=== PATIENT | female | born 1950 | race Two or more races ===

== ENCOUNTER → 2019-08-06 | Emergency (ER) | payer OTHER ==
[~2019-08-06] VITALS: Ht 157.5 cm; Wt 66.2 kg
[~2019-08-06] MED LIST: AMLO10TA13 PO; MORPHINE SULFATE 4 MG/ML SYR/VIAL IV ONE; ONDANSETRON HCL 4 MG/2 ML VIAL IV ONE; PAR20T PO; Pantoprazole Sodium Sesquihydr PO; fentaNYL CITRATE 100 MCG/2 ML VL IV ONE
[2019-08-06 19:03] LABS: Basophils # (auto) 0 10 ^3/uL (0-0.2); Basophils % (auto) 0.5 % (0.0-2.0); Eosinophils # (auto) 0 10 ^3/uL (0-0.8); Eosinophils % (auto) 0.5 % (0.0-7.0); Hematocrit 41.6 % (36.0-46.0); Hemoglobin 13.8 g/dL (12.2-16.2); Lymphocytes # (auto) 1.2 10 ^3/uL (0.4-5.4); Lymphocytes % (auto) 18.6 % (10.0-50.0); Mean Corpuscular Hemoglobin 30.1 pg (28.0-32.0); Mean Corpuscular Hgb Conc. 33.3 g/dL (32.0-36.0); Mean Corpuscular Volume 90.7 fL (80.0-100.0); Monocytes # (auto) 0.7 10 ^3/uL (0-1.3); Monocytes % (auto) 10.8 % (0.0-12.0); Neutrophils # (auto) 4.7 10 ^3/uL (1.6-8.6); Neutrophils % (auto) 69.6 % (37.0-80.0); Nucleated Red Blood Cells % 0.1 %; Platelet Count (auto) 398 10^3/uL (140-450); Red Blood Cells 4.59 10^6/uL (4.0-5.20); Red Cell Distribution Width 13.3 % (11.8-14.3); White Blood Cell 6.7 10^3/uL (4.4-10.8)
[2019-08-06 19:10] LABS: Alanine Aminotransferase 7 U/L (13-56); Albumin 3.4 g/dL (3.4-5.0); Anion Gap 6 (5-15); Aspartate Aminotransferase 15 U/L (15-37); BUN/Creatinine Ratio 12.2; Blood Urea Nitrogen 11 mg/dL (7-18); Calcium 9.1 mg/dL (8.5-10.1); Carbon Dioxide 28 mmol/L (21-32); Chloride 105 mmol/L (98-107); GFR African American 80 mL/min; GFR Non-African American 66 mL/min; Glucose 119 mg/dL (74-106); Magnesium 2.4 mg/dL (1.6-2.6); Potassium 3.7 mmol/L (3.5-5.1); Sodium 139 mmol/L (136-145)
[2019-08-06 19:15] LABS: Alkaline Phosphatase 112 U/L (45-117)
[2019-08-06 21:10] VITALS: BP 129/63
[2019-08-06 22:49] LABS: Urine Bacteria FEW /hpf (None Seen); Urine Blood TRACE /uL (Negative); Urine Mucus FEW (None Seen); Urine Specific Gravity 1.019 (1.001-1.035); Urine WBC 23 /hpf (0 - 5)
== END | disposition home or self-care (01) ==
LOC: EDUNIT# 18:30 → ER 18:30 → EDBD 18:30
DX: R07.89 Other chest pain (principal); E78.5 Hyperlipidemia, unspecified; K21.9 Gastro-esophageal reflux disease without esophagitis; I10 Essential (primary) hypertension; R11.2 Nausea with vomiting, unspecified
CPT/HCPCS: 36415; 71045; 80053; 81001; 83735; 84443; 84484; 85025; 93005; 96374; 96375; 96376; 99285; J2270; J2405; J3010

== ENCOUNTER → 2022-10-08 | Outpatient (CLI) | payer OTHER ==
[~2022-10-08] MED LIST changes: -AMLO10TA13 PO; +AMLO1TAB23 PO; -MORPHINE SULFATE 4 MG/ML SYR/VIAL IV ONE; -ONDANSETRON HCL 4 MG/2 ML VIAL IV ONE; -fentaNYL CITRATE 100 MCG/2 ML VL IV ONE
[2022-10-08 11:29] LABS: Basophils # (auto) 0 10 ^3/uL (0-0.2); Eosinophils # (auto) 0 10 ^3/uL (0-0.8); Lymphocytes # (auto) 1.1 10 ^3/uL (0.4-5.4); Monocytes # (auto) 0.7 10 ^3/uL (0-1.3)
[2022-10-08 11:31] LABS: Basophils % (auto) 0.5 % (0.0-2.0); Eosinophils % (auto) 0.1 % (0.0-7.0); Lymphocytes % (auto) 11.2 % (10.0-50.0); Mean Corpuscular Hemoglobin 30.2 pg (28.0-32.0); Mean Corpuscular Hgb Conc. 33.4 g/dL (32.0-36.0); Mean Corpuscular Volume 90.6 fL (80.0-100.0); Monocytes % (auto) 7.5 % (0.0-12.0); Neutrophils # (auto) 7.8 10 ^3/uL (1.6-8.6); Neutrophils % (auto) 80.7 % (37.0-80.0); Red Blood Cells 4.64 10^6/uL (4.0-5.20); Red Cell Distribution Width 13.5 % (11.8-14.3); White Blood Cell 9.7 10^3/uL (4.4-10.8)
[2022-10-08 11:47] LABS: Urine Blood 2+ /uL (Negative); Urine Specific Gravity 1.022 (1.001-1.035)
[2022-10-08 12:09] LABS: Albumin 3.8 g/dL (3.4-5.0); Calcium 9.3 mg/dL (8.5-10.1)
[2022-10-08 12:13] LABS: Bilirubin, Total 1.2 mg/dL (0.2-1.0); Total Protein 8.2 g/dL (6.4-8.2); Uric Acid 5.1 mg/dL (2.6-6.0)
== END | disposition home or self-care (01) ==
LOC: LAB 11:14
PROVIDERS: ATTEND Family Medicine
DX: Z12.11 Encounter for screening for malignant neoplasm of colon (principal); Z00.01 Encounter for general adult medical examination with abnormal findings; E55.9 Vitamin D deficiency, unspecified; G20 Parkinson's disease; F33.9 Major depressive disorder, recurrent, unspecified; I67.9 Cerebrovascular disease, unspecified; E78.2 Mixed hyperlipidemia; R73.09 Other abnormal glucose; R73.03 Prediabetes; E66.3 Overweight
CPT/HCPCS: 36415; 80053; 80061; 81003; 82270; 83036; 84443; 84550; 85025

== ENCOUNTER → 2023-08-21 | Outpatient (CLI) | payer OTHER | END | disposition home or self-care (01) | LOC: LAB 10:23 | PROVIDERS: ATTEND Family Medicine | DX: Z00.01 Encounter for general adult medical examination with abnormal findings (principal) | CPT/HCPCS: 82270 ==

== ENCOUNTER → 2023-09-08 | Outpatient (CLI) | payer OTHER ==
[2023-09-08 10:20] LABS: Basophils # (auto) 0 10 ^3/uL (0-0.2); Basophils % (auto) 0.5 % (0.0-2.0); Eosinophils # (auto) 0 10 ^3/uL (0-0.8); Eosinophils % (auto) 0.4 % (0.0-7.0); Hematocrit 39.5 % (36.0-46.0); Hemoglobin 13.4 g/dL (12.2-16.2); Lymphocytes # (auto) 1.5 10 ^3/uL (0.4-5.4); Lymphocytes % (auto) 19.3 % (10.0-50.0); Monocytes # (auto) 0.7 10 ^3/uL (0-1.3); Monocytes % (auto) 8.9 % (0.0-12.0); Neutrophils # (auto) 5.7 10 ^3/uL (1.6-8.6); Neutrophils % (auto) 70.9 % (37.0-80.0); Nucleated Red Blood Cells % 0.1 %; Red Blood Cells 4.34 10^6/uL (4.0-5.20); Red Cell Distribution Width 13.5 % (11.8-14.3)
[2023-09-08 11:02] LABS: Alanine Aminotransferase 14 U/L (7-40); Alkaline Phosphatase 81 U/L (46-116); Anion Gap 6 (5-15); BUN/Creatinine Ratio 11.2 (10.0-20.0); Blood Urea Nitrogen 10 mg/dL (9-23); Carbon Dioxide 29 mmol/L (20-30); Chloride 107 mmol/L (98-107); Glucose 105 mg/dL (74-106); LDL Cholesterol 112 mg/dL (< 100); Potassium 3.9 mmol/L (3.5-5.1); Sodium 142 mmol/L (136-145); Triglycerides 131 mg/dL (< 150)
[2023-09-08 11:03] LABS: Albumin 4.6 g/dL (3.2-4.8); Aspartate Aminotransferase 15 U/L (13-40); Cholesterol 202 mg/dL (< 200)
[2023-09-08 11:04] LABS: Bilirubin, Total 1.3 mg/dL (0.2-1.0); HDL Cholesterol 67 mg/dL (40-59)
[2023-09-08 11:31] LABS: Uric Acid 4.9 mg/dL (3.1-7.8)
[2023-09-08 11:56] LABS: Urine Blood 1+ /uL (Negative); Urine Clarity Turbid (Clear); Urine Color Light-Yellow (Yellow); Urine Protein, UAD Negative (Negative); Urine Specific Gravity 1.015 (1.001-1.035); Urine Urobilinogen Normal (Negative); Urine pH 5.5 (5.0-9.0)
== END | disposition home or self-care (01) ==
LOC: LAB 09:40
PROVIDERS: ATTEND Family Medicine
DX: Z11.8 Encounter for screening for other infectious and parasitic diseases (principal); I73.9 Peripheral vascular disease, unspecified; E55.9 Vitamin D deficiency, unspecified; E66.3 Overweight; I67.9 Cerebrovascular disease, unspecified; E78.5 Hyperlipidemia, unspecified; R73.09 Other abnormal glucose
CPT/HCPCS: 36415; 80053; 80061; 81003; 82306; 83036; 84443; 84550; 85025

== ENCOUNTER → 2024-06-30 | Outpatient (CLI) | payer OTHER | END | disposition home or self-care (01) | LOC: LAB 15:46 | PROVIDERS: ATTEND Family Medicine | DX: Z12.11 Encounter for screening for malignant neoplasm of colon (principal) | CPT/HCPCS: 82270 ==

== ENCOUNTER → 2024-09-02 | Outpatient (CLI) | payer OTHER ==
[2024-09-02 08:25] LABS: Urine Bacteria None Seen /hpf (None Seen)
[2024-09-02 08:44] LABS: Basophils # (auto) 0.1 10 ^3/uL (0-0.2); Basophils % (auto) 0.9 % (0.0-2.0); Eosinophils # (auto) 0 10 ^3/uL (0-0.8); Eosinophils % (auto) 0.6 % (0.0-7.0); Hematocrit 41.8 % (36.0-46.0); Lymphocytes # (auto) 1.7 10 ^3/uL (0.4-5.4); Lymphocytes % (auto) 25.5 % (10.0-50.0); Mean Corpuscular Hemoglobin 29.8 pg (28.0-32.0); Mean Corpuscular Hgb Conc. 33.6 g/dL (32.0-36.0); Mean Corpuscular Volume 88.6 fL (80.0-100.0); Monocytes # (auto) 0.6 10 ^3/uL (0-1.3); Monocytes % (auto) 8.5 % (0.0-12.0); Neutrophils # (auto) 4.4 10 ^3/uL (1.6-8.6); Neutrophils % (auto) 64.5 % (37.0-80.0); Nucleated Red Blood Cells % 0.1 %; Platelet Count (auto) 410 10^3/uL (140-450); Red Blood Cells 4.72 10^6/uL (4.0-5.20); Red Cell Distribution Width 13.8 % (11.8-14.3); White Blood Cell 6.8 10^3/uL (4.4-10.8)
[2024-09-02 08:55] LABS: Urine Blood 1+ /uL (Negative); Urine Clarity Clear (Clear); Urine Color Light-Yellow (Yellow); Urine Mucus FEW (None Seen); Urine Protein, UAD Negative (Negative); Urine Specific Gravity 1.016 (1.001-1.035); Urine Squamous Epithelial Cell FEW /hpf (<5); Urine Urobilinogen Normal (Negative); Urine WBC 22 /HPF (0-5)
[2024-09-02 09:32] LABS: Alanine Aminotransferase 10 U/L (7-40); Albumin 4.7 g/dL (3.2-4.8); Alkaline Phosphatase 78 U/L (46-116); Anion Gap 12 (5-15); Aspartate Aminotransferase 17 U/L (13-40); BUN/Creatinine Ratio 15.8 (10.0-20.0); Blood Urea Nitrogen 16 mg/dL (9-23); Calcium 10.4 mg/dL (8.7-10.4); Carbon Dioxide 25 mmol/L (20-31); Chloride 104 mmol/L (98-107); Potassium 3.7 mmol/L (3.5-5.1); Sodium 141 mmol/L (136-145); Total Protein 8.1 g/dL (5.7-8.2); Triglycerides 99 mg/dL (< 150)
[2024-09-02 09:38] LABS: Bilirubin, Total 1.3 mg/dL (0.2-1.0); Cholesterol 270 mg/dL (< 200); Glucose 114 mg/dL (74-106)
[2024-09-02 09:39] LABS: HDL Cholesterol 73 mg/dL (40-59); LDL Cholesterol 199 mg/dL (< 100)
[2024-09-02 10:29] LABS: Uric Acid 5.7 mg/dL (3.1-7.8)
== END | disposition home or self-care (01) ==
LOC: LAB 08:10
PROVIDERS: ATTEND Family Medicine
DX: E78.2 Mixed hyperlipidemia (principal); M19.031 Primary osteoarthritis, right wrist; E55.9 Vitamin D deficiency, unspecified; N18.2 Chronic kidney disease, stage 2 (mild); G20.C Parkinsonism, unspecified; F33.9 Major depressive disorder, recurrent, unspecified; R73.03 Prediabetes; R73.09 Other abnormal glucose; Z87.81 Personal history of (healed) traumatic fracture
CPT/HCPCS: 36415; 80053; 80061; 81001; 82043; 82306; 83036; 84443; 84550; 85025

== ENCOUNTER 2025-02-14 04:25 | Inpatient (IN) | payer MEDICARE, OTHER ==
[~2025-02-14] VITALS: Ht 152.4 cm; Wt 70.5 kg
--- NOTE | 2025-02-14 07:13 | ED.PDOC ---
GI ASSESSMENT HPI Comments 74 year old female with PMHx HTN, HLD, Parkinson's disease, arthritis, GERD presents to the ED with a chief complaint of abdominal pain onset 1 day. Patient states she has been experiencing abdominal pain as well as nausea/vomiting for the past day, noticed symptoms worsened around midnight. Since ED arrival, she experienced 3 episodes of emesis. Denies fever, chills, headache, dizziness, hematemesis, dysuria, hematuria. No other symptoms or modifying factors present at this time. Chief Complaint: Abdominal Pain Time Seen by MD: 07:00 Primary Care Provider: DAVID Goncalves Notes: Medications, Allergies Allergies: Coded Allergies: NO KNOWN ALLERGIES (Unverified , 11/01/14) Home Meds Active Scripts [Pantoprazole Sodium Sesquihydr] 40 MG TB No Conflict Check, 40 MG PO BID, #60 TAB Prov:CHARLIE PUGH MD 11/03/14 Reported Medications Amlodipine Besylate (Amlodipine Besylate) 10 Mg Tab, PO DAILY 11/01/14 Paroxetine (PAXIL TABLET) 20 Mg Tb, PO HS 11/01/14 Information Source: Patient, Relative Mode of Arrival: Ambulatory Timing: Days Duration: Since onset Prehospital treatment: None Quality: Sharp Vomitus: None Severity: Moderate Recent: None Recent Hx of: None Pain Location: Diffuse Modifying Factors: Nothing Associated sign and symptoms: Nausea, Vomiting, Abdominal Pain Past Medical History PAST MEDICAL HISTORY: Arthritis, Depression, GERD, High Lipids, HTN Surgical History: Denies all surgeries CRNA History: Denies all CRNA Hx Family History Family History: Reviewed,noncontributory to illness Social History Smoker: Non-Smoker Alcohol: Rarely Drugs: Denies Drug Use Lives In: Home Constitutional: denies: chills, diaphoresis, fatigue, fever, malaise, sweats, weakness, others EENTM: denies: blurred vision, double vision, ear bleeding, ear discharge, ear drainage, ear pain, ear ringing, eye pain, eye redness, hearing loss, mouth pain, mouth swelling, nasal discharge, nose bleeding, nose congestion, nose pain, photophobia, tearing, throat pain, throat swelling, voice changes, others Respiratory: denies: cough, hemoptysis, orthopnea, SOB at rest, shortness of breath, SOB with excertion, stridor, wheezing, others Cardiovascular: denies: chest pain, dizzy spells, diaphoresis, Dyspnea on exertion, edema, irregular heart beat, left arm pain, lightheadedness, palpitations, PND, syncope, others Gastrointestinal: reports: abdominal pain, nausea, vomiting; denies: abdomen distended, blood streaked bowels, constipated, diarrhea, dysphagia, difficulty swallowing, hematemesis, melena, poor appetite, poor fluid intake, rectal bleeding, rectal pain, others Genitourinary: denies: abnormal vagina bleeding, burning, dyspareunia, dysuria, flank pain, frequency, hematuria, incontinence, pain, , vagina discharge, urgency, others Neurological: denies: dizziness, fainting, headache, left sided numbness, left sided weakness, numbness, paresthesia, pre-existing deficit, right sided numbness, right sided weakness, seizure, speech problems, tingling, tremors, weakness, others Musculoskeletal: denies: back pain, gout, joint pain, joint swelling, muscle pain, muscle stiffness, neck pain, others Integumetry: denies: bruises, change in color, change in hair/nails, dryness, laceration, lesions, lumps, rash, wounds, others Allergic/Immunocompromised: denies: Difficulty Healing, Frequent Infections, Hives, Itching, others Hematologic/Lymphatic: denies: anemia, blood clots, easy bleeding, easy bruising, swollen glands, others Endocrine: denies: excessive hunger, excessive sweating, excessive thirst, excessive urination, flushing, intolerance to cold, intolerance to heat, unexplained weight gain, unexplained weight loss, others Psychiatric: denies: anxiety, bipolar disorder, depression, hopeless, panic disorder, schizophrenia, sleepless, suicidal, others All Other Systems: Reviewed and Negative Physical Exam General Appearance: Normal HEENT: Normal ENT Inspection, Pharynx Normal, TMs Normal Neck: Full Range of Motion, Non-Tender, Normal, Normal Inspection Respiratory: Chest Non-Tender, Lungs Clear, No Accessory Muscle Use, No Respiratory Distress, Normal Breath Sounds Cardiovascular: No Edema, No JVD, No Murmur, No Gallop, Normal Peripheral Pulses, Regular Rate/Rhythm Breast Exam: Deferred Gastrointestinal: No Organomegaly, Non Tender, No Pulsatile Mass, Normal Bowel Sounds, Soft Genitalia: Deferred Pelvic: Deferred Rectal: Deferred Extremities: No calf tenderness, Normal capillary refill, Normal inspection, Normal range of motion, Non-tender, No pedal edema Musculoskeletal : Apperance: Normal Neurologic: Alert, physical therapist clinic director II-XII nml as Tested, No Motor Deficits, Normal Affect, Normal Mood, No Sensory Deficits Cerebellar Function: Normal Reflexes: Normal Skin: Dry, Normal Color, Warm Lymphatic: No Adenopathy Was a procedure done? Was a procedure done?: No GI differential Dx Differential Diagnosis: Gastritis/PUD, Gastroenteritis, Electrolyte Imbalance, Food Poisoning, Bacterial, Viral X-Ray, Labs, Meds, VS Vital Signs Date Time Temp Pulse Resp B/P (MAP) Pulse Ox O2 Delivery O2 Flow Rate FiO2 02/14/25 09:15 105 18 130/71 (90) 96 02/14/25 07:47 103 18 98 Room Air* 0 21 02/14/25 07:23 97.5 103 18 133/80 (97) 96 97.5 02/14/25 06:22 97.3 96 18 123/66 96 97.3 02/14/25 06:07 98.2 99 18 121/80 (94) 97 98.2 Lab Test 02/14/25 10:04 02/14/25 08:08 02/14/25 07:35 02/14/25 07:08 Range/Units Troponin I High Sensitivity 6 6 5 </=34 ng/L Urine Color Light-yellow Yellow Urine Clarity Clear Clear Urine pH 7.5 5.0-9.0 Urine Specific [place] 1.044 H 1.001-1.035 Urine Protein Negative Negative Urine Ketones Negative Negative Urine Blood Negative Negative /uL Urine Nitrite Negative Negative Urine Bilirubin Negative Negative Urine Urobilinogen Normal Negative mg/dL Urine Leukocyte Esterase Negative Negative /uL Urine RBC 3 0 - 4 /hpf Urine Microscopic WBC 1 0-5 /HPF Urine Squamous Epithelial Cells Few <5 /hpf Urine Bacteria Few H None Seen /hpf Urine Glucose Normal Normal mg/dL White Blood Count 19.0 H 4.4-10.8 10^3/uL Red Blood Count 4.76 4.0-5.20 10^6/uL Hemoglobin 14.4 12.2-16.2 g/dL Hematocrit 42.3 36.0-46.0 % Mean Corpuscular Volume 88.9 80.0-100.0 fL Mean Corpuscular Hemoglobin 30.2 28.0-32.0 pg Mean Corpuscular Hemoglobin Concent 34.0 32.0-36.0 g/dL Red Cell Distribution Width 13.8 11.8-14.3 % Platelet Count 462 H 140-450 10^3/uL Mean Platelet Volume 7.6 6.9-10.8 fL Neutrophils (%) (Auto) 91.4 H 37.0-80.0 % Lymphocytes (%) (Auto) 2.9 L 10.0-50.0 % Monocytes (%) (Auto) 5.6 0.0-12.0 % Eosinophils (%) (Auto) 0.0 0.0-7.0 % Basophils (%) (Auto) 0.1 0.0-2.0 % Neutrophils # (Auto) 17.3 H 1.6-8.6 10 ^3/uL Lymphocytes # (Auto) 0.5 0.4-5.4 10 ^3/uL Monocytes # (Auto) 1.1 0-1.3 10 ^3/uL Eosinophils # (Auto) 0 0-0.8 10 ^3/uL Basophils # (Auto) 0 0-0.2 10 ^3/uL Nucleated Red Blood Cells 0.1 % Sodium Level 142 136-145 mmol/L Potassium Level 3.9 3.5-5.1 mmol/L Chloride Level 102 98-107 mmol/L Carbon Dioxide Level 27 20-31 mmol/L Anion Gap 13 5-15 Blood Urea Nitrogen 13 9-23 mg/dL Creatinine 1.13 H 0.550-1.02 mg/dL Glomerular Filtration Rate Calc 51 >90 mL/min BUN/Creatinine Ratio 11.5 10.0-20.0 Serum Glucose 132 H 74-106 mg/dL Calcium Level 9.8 8.7-10.4 mg/dL Current Medications Medications (Trade) Dose Ordered Sig/Gil Route Start Time Stop Time Status Last Admin Sodium Chloride 1,000 ml @ 1,000 mls/hr Q1H ONCE IV 02/14/25 07:15 02/14/25 08:14 DC 02/14/25 07:36 Ondansetron HCl (Zofran) 4 mg ONCE ONCE IV 02/14/25 07:15 02/14/25 07:16 DC 02/14/25 07:[address] [address] Ph: [phone] DIAGNOSTIC IMAGING Diagnostic Imaging Report : [id number] Signed PATIENT: LAUREEN HANDY ACCT: [id number] UNIT: [id number] : 1950 LOC: ER ROOM / BED: / AGE / SEX: 74 / F ADM STATUS: REG ER SERVICE [id number] ORDERING PHYSICIAN: ADAM BOLDEN MD PROCEDURE(s): ABPLIV - CT AB PEL WITH IV CON ONLY REASON: abdominal pain ORDER NUMBER(s): [id number], ACCESSION NUMBER(s): [id number] Exam: CT CT AB PEL WITH IV CON ONLY History: Abdominal pain. Comparison Study: None. Contrast: Type of contrast: Omnipaque 300 Contrast injected: 100 mL Contrast wasted: 0 TECHNIQUE: CT of the abdomen pelvis was performed with intravenous contrast. Coronal and sagittal reformatted images are submitted. Radiation Dose Information: CT Dose: CTDI volume is 15.82 mGy. Dose-length product is 820.64 mGy*cm FINDINGS: Lung Bases: No acute or significant lung base finding. Normal heart size. No pleural or pericardial effusion. Liver: The liver is normal in size. No focal lesions. Normal hepatic vascular enhancement. Gallbladder and Biliary Tree: The gallbladder is surgically absent. No biliary ductal dilatation. Spleen: Unremarkable. Pancreas: The pancreas is normal in appearance without focal lesions or abnormal enhancement. Adrenal Glands: Unremarkable Kidneys: Kidneys demonstrate normal symmetric enhancement without focal lesions, calculi or hydronephrosis. Bladder: Unremarkable Bowel: Small hiatal hernia. Fluid-filled small bowel loops, nonspecific. Liquid stool in the cecum. No acute appendicitis. Peritoneum: No pneumoperitoneum or ascites. Lymphadenopathy: No mesenteric, retroperitoneal or periportal lymphadenopathy. Abdominal Wall and Mesentery: Unremarkable. Vasculature: The visualized abdominal aorta is normal in size and caliber. Abdominal and pelvic vessels demonstrate normal enhancement. Pelvic Organs: Unremarkable Musculoskeletal: No aggressive focal bony lesions, acute fractures or dislocation. Soft tissues: Unremarkable. IMPRESSION: 1. Fluid-filled small bowel loops, nonspecific. Liquid stool in the cecum. Findings may represent enteritis. 2. No evidence of acute appendicitis. ATED BY: JUAN M YANES MD DICTATED DATE/TIME: 02/14/25852 SIGNED BY: JUAN M YANES MD SIGNED DATE/TIME: 02/14/25852 CC: [place] [id number] Ph: [phone] DIAGNOSTIC IMAGING Diagnostic Imaging Report : [id number] Signed PATIENT: LAUREEN HANDY ACCT: [id number] UNIT: [id number] : 1950 LOC: ER ROOM / BED: / AGE / SEX: 74 / F ADM STATUS: REG ER SERVICE 0 ORDERING PHYSICIAN: ADAM BOLDEN MD PROCEDURE(s): CXRP - CHEST PORTABLE REASON: weakness ORDER NUMBER(s): [id number], ACCESSION NUMBER(s): [id number] CHEST RADIOGRAPH Indication: weakness Technique: Single frontal view of the chest was obtained COMPARISON: XY R SHOULDER 2+ VIEW XRAY on DOS: 11/25/22, XY L SHOULDER 2+ VIEW XRAY on DOS: 11/25/22 FINDINGS: Lines and Tubes: None Lungs: Congestion Pleura: No effusion. No pneumothorax. Cardiomediastinal contours: Unremarkable Bones: Unremarkable IMPRESSION: Increased interstital prominence. This may represent pulmonary vascular congestion and/or viral pneumonia. Clinical correlation advised. ATED BY: WEST MARTINEZ MD DICTATED DATE/TIME: 02/14/25833 SIGNED BY: WEST MARTINEZ MD SIGNED DATE/TIME: 02/14/25833 CC: Time of 1ST Reevaluation: 07:30 Reevaluation 1ST: Unchanged Patient Education/Counseling: Diagnosis, Treatment, Prognosis Family Education/Counseling: Diagnosis, Treatment, Prognosis SEPSIS Sepsis Screen Date sepsis recognized/suspect: Feb 14, 2025 Time Sepsis recognized/suspect: 06 Recent Procedure: No On Antibiotic Therapy: No Respiratory Rate >20: No Heart Rate >90: No Temp<36 C (96.8 F) or >38.3 C: No SBP <90 or MAP <65 mmHG: No New Acute Mental Status Change: No Is the patient on CPAP, BIPAP,: No Physician Orders Chest Portable (02/14/25 07:01) Ct Ab Pel With Iv Con Only (02/14/25 07:05) Lactic Acid W/ Reflex Order (02/14/25 10:43) Blood Culture (02/14/25 10:43) Cefazolin Ancef (02/14/25 10:45) Metronidazole Ivpb Flagyl (02/14/25 10:45) NS (02/14/25 10:45) Vital Signs Date Time Temp Pulse Resp B/P (MAP) Pulse Ox O2 Delivery O2 Flow Rate FiO2 02/14/25 09:15 105 18 130/71 (90) 96 02/14/25 07:47 103 18 98 Room Air* 0 21 02/14/25 07:23 97.5 103 18 133/80 (97) 96 97.5 02/14/25 06:22 97.3 96 18 123/66 96 97.3 02/14/25 06:07 98.2 99 18 121/80 (94) 97 98.2 Laboratory Tests Test 02/14/25 07:08 White Blood Count 19.0 10^3/uL (4.4-10.8) H Medications Medications Dose Ordered Sig/Gil Route Start Time Stop Time Status Last Admin Dose Admin Ondansetron HCl 4 mg ONCE ONCE IV 02/14/25 07:15 02/14/25 07:16 DC 02/14/25 07:36 Sodium Chloride 1,000 ml @ 1,000 mls/hr Q1H ONCE IV 02/14/25 07:15 02/14/25 08:14 DC 02/14/25 07:36 Departure 1 Departure Time of Disposition: 10:46 (Patient presented with abdominal pain that was concerning for possible appendicits, gastritis, cholecystitis, colitis, gastroenteritis, sbo, or orther possible surgical emergency. Data: 1. I ordered and reviewed the result of at least 3 labs including a CBC, BMP, and Urinalysis. 2. I independently interpreted the following tests: CT Abdomen and Pelvis is concerning for colitis .Risk:This patient has a high risk of morbidity due to further diagnostic testing or treatment and may suffer from an acute abdominal process disorder. Workup reveals colitis/enteritis and patient should be admitted for further workup. and possible expert consultation. We will cover patient with antibiotics and we will not give the full fluid bolus.) Impression: Primary Impression: Enteritis Additional Impressions: Colitis Intractable abdominal pain Disposition: ADMITTED INPATIENT Admit to: Med Surg Condition: Serious Critical Care Note Critical Care Time?: Yes Critical care comment: Intractable abdominal pain Authorized and Performed by: Adam Bolden MD Total critical care time: Approximately 38 minutes Due to a high probability of clinically significant, life threatening deterioration, the patient required my highest level of preparedness to intervene emergently and I personally spent this critical care time directly and personally managing the patient. This critical care time included obtaining a history; examining the patient; pulse oximetry; ordering and review of studies; arranging urgent treatment with development of a management plan; evaluation of patient's response to treatment; frequent reassessment; and, discussions with other providers. This critical care time was performed to assess and manage the high probability of imminent, life-threatening deterioration that could result in multi-organ failure. It was exclusive of separately billable procedures and treating other patients and teaching time. Please see my other sections and the rest of the note for further information on patient assessment and treatment. Stability Stability form required: No Heart Score Heart Score: Heart Score Response (Comments) Value History N/A 0 EKG N/A 0 Age N/A 0 Risk Factors N/A 0 Troponin N/A 0 Total 0 I personally scribed for ADAM BOLDEN MD ([email or web address]) on 02/14/25 at 07:13. Electronically submitted by Elma Catalan ([email or web address]). I personally scribed for ADAM BOLDEN MD ([email or web address]) on 02/14/25 at 10:03. Electronically submitted by Elma Catalan ([email or web address]). ADAM BOLDEN MD Feb 14, 2025 07:13
[2025-02-14] MEDS: ONDANSETRON HCL 4 MG/2 ML VIAL IV ONE (07:36)
[2025-02-14] MEDS: SODIUM CHLORIDE 0.9% 1,000 ML IV ONE ×3 (07:36→17:47)
[2025-02-14] MEDS: MORPHINE SULFATE 4 MG/ML SYR/VIAL IV ONE (07:36)
[2025-02-14 07:47] VITALS: PULSE 103; RESP 18; O2SAT 98
[2025-02-14 07:47] LABS: Hemoglobin 14.4 g/dL (12.2-16.2); Mean Corpuscular Hemoglobin 30.2 pg (28.0-32.0)
[2025-02-14 07:48] LABS: Chloride 102 mmol/L (98-107); Potassium 3.9 mmol/L (3.5-5.1); Sodium 142 mmol/L (136-145)
[2025-02-14 07:49] LABS: Anion Gap 13 (5-15); Calcium 9.8 mg/dL (8.7-10.4); Carbon Dioxide 27 mmol/L (20-31)
[2025-02-14 07:52] LABS: Hematocrit 42.3 % (36.0-46.0); Mean Corpuscular Volume 88.9 fL (80.0-100.0); Nucleated Red Blood Cells % 0.1 %
[2025-02-14 07:54] LABS: BUN/Creatinine Ratio 11.5 (10.0-20.0); Blood Urea Nitrogen 13 mg/dL (9-23); Glucose 132 mg/dL (74-106)
--- NOTE | 2025-02-14 08:37 | DVH ---
CHEST RADIOGRAPH Indication: weakness Technique: Single frontal view of the chest was obtained COMPARISON: XY R SHOULDER 2+ VIEW XRAY on DOS: 11/25/22, XY L SHOULDER 2+ VIEW XRAY on DOS: 11/25/22 FINDINGS: Lines and Tubes: None Lungs: Congestion Pleura: No effusion. No pneumothorax. Cardiomediastinal contours: Unremarkable Bones: Unremarkable IMPRESSION: Increased interstital prominence. This may represent pulmonary vascular congestion and/or viral pneumonia. Clinical correlation advised.
--- NOTE | 2025-02-14 08:55 | DVH ---
Exam: CT CT AB PEL WITH IV CON ONLY History: Abdominal pain. Comparison Study: None. Contrast: Type of contrast: Omnipaque 300 Contrast injected: 100 mL Contrast wasted: 0 TECHNIQUE: CT of the abdomen pelvis was performed with intravenous contrast. Coronal and sagittal reformatted images are submitted. Radiation Dose Information: CT Dose: CTDI volume is 15.82 mGy. Dose-length product is 820.64 mGy*cm FINDINGS: Lung Bases: No acute or significant lung base finding. Normal heart size. No pleural or pericardial effusion. Liver: The liver is normal in size. No focal lesions. Normal hepatic vascular enhancement. Gallbladder and Biliary Tree: The gallbladder is surgically absent. No biliary ductal dilatation. Spleen: Unremarkable. Pancreas: The pancreas is normal in appearance without focal lesions or abnormal enhancement. Adrenal Glands: Unremarkable Kidneys: Kidneys demonstrate normal symmetric enhancement without focal lesions, calculi or hydronephrosis. Bladder: Unremarkable Bowel: Small hiatal hernia. Fluid-filled small bowel loops, nonspecific. Liquid stool in the cecum. No acute appendicitis. Peritoneum: No pneumoperitoneum or ascites. Lymphadenopathy: No mesenteric, retroperitoneal or periportal lymphadenopathy. Abdominal Wall and Mesentery: Unremarkable. Vasculature: The visualized abdominal aorta is normal in size and caliber. Abdominal and pelvic vessels demonstrate normal enhancement. Pelvic Organs: Unremarkable Musculoskeletal: No aggressive focal bony lesions, acute fractures or dislocation. Soft tissues: Unremarkable. IMPRESSION: 1. Fluid-filled small bowel loops, nonspecific. Liquid stool in the cecum. Findings may represent enteritis. 2. No evidence of acute appendicitis.
[2025-02-14] MEDS: IOHEXOL 300 MG/ML 100ML BOTTLE IJ ONE (09:10)
[2025-02-14 09:22] LABS: Urine Protein, UAD Negative (Negative)
[2025-02-14] MEDS: ceFAZolin 2 GM/D5W50ml 50 ML IV ONE (12:49)
[2025-02-14] MEDS ORDERED: HYDROcodone-ACET 5/325MG TAB PO PRN (16:30)
[2025-02-14] MEDS ORDERED: DOCUSATE SOD 100 MG CAP PO PRN (16:30)
[2025-02-14] MEDS ORDERED: ONDANSETRON HCL 4 MG/2 ML VIAL IV PRN (16:30)
[2025-02-14] MEDS ORDERED: ACETAMINOPHEN 325 MG TAB PO PRN (16:30)
--- NOTE | 2025-02-14 17:11 | DVHHP2 ---
History of Present Illness Reason for Visit: Abdominal pain, nausea, and vomiting History of Present Illness Aparna Koehler is a 74-year-old female with past medical history of hypertension, hyperlipidemia, Parkinson's, arthritis, osteoporosis, and GERD who came to the hospital due to abdominal pain, nausea, and vomiting. Patient lives with her son, he is at bedside. States she began to have a light stomachache last night about 1800. Midnight she was woken up due to the pain worsening. About 0300 she began vomiting and that is when her son decided to bring her to the hospital. Cardiovascular: HTN, hyperipidemia FLAGMAN: Other (Parkinson's) GI: GERD Musculoskeletal: Osteoarthritis Smoke: No ALCOHOL: none Drugs: None Lives: with Family Domestic Violence: Neg Review of Systems Constitutional: No: Fever, Chills, Sweats, Weakness, Malaise, Other Eyes: No: Pain, Vision change, Conjunctivae inflammation, Eyelid inflammation, Other, Redness ENT: No: Ear pain, Ear discharge, Nose pain, Nose discharge, Nose congestion, Mouth pain, Mouth swelling, Throat pain, Throat swelling, Other Respiratory: No: Cough, Dry, Shortness of breath, SOB with excertion, Wheezing, Hemoptysis, Pleuritic Pain, Sputum, Wheezing, Other Cardiovascular: No: Chest Pain, Palpitations, Orthopnea, Paroxysmal Noc. Dyspnea, Edema, Lt Headedness, Other Gastrointestinal: Nausea, Vomiting, Abdominal Pain; No: Diarrhea, Constipation, Melena, Hematochezia, Other Genitourinary: No Dysuria, No Frequency, No Incontinence, No Hematuria, No Retention, No Other Musculoskeletal: No: other, neck pain, shoulder pain, arm pain, back pain, hand pain, leg pain, foot pain Skin: No: Rash, Lesions, Jaundice, Bruising, Other Neurological: No: Weakness, Numbness, Incoordination, Change in speech, Confusion, Seizures, Other Allergies: Coded Allergies: NO KNOWN ALLERGIES (Unverified , 11/01/14) Exam Vital Signs Vital Signs Date Time Temp Pulse Resp B/P (MAP) Pulse Ox O2 Delivery O2 Flow Rate FiO2 02/14/25 14:24 89 16 121/52 (75) 98 02/14/25 11:32 97.8 97.8 02/14/25 07:47 Room Air* 0 21 General Appearance: Alert, Oriented X3, Cooperative, mild distress HEENT: Atraumatic, PERRLA Respiratory: Clear to auscultation, Normal air movement Cardiovascular: Normal S1, Normal S2, Other (ST-SR) Abdominal: Normal bowel sounds, Soft, Other (nausea, abdominal tenderness) Extremities: No clubbing, No cyanosis, No edema, Normal pulses, No tenderness/swelling Skin: No rashes, No breakdown, No significant lesion Neuro: Normal gait, Normal speech, Other (weakkness) Psych/Mental Status: Mental status NL, Mood NL Labs/Xrays Labs Test 02/14/25 10:57 02/14/25 10:04 02/14/25 07:35 02/14/25 07:08 Range/Units Lactic Acid Level 1.2 0.4-2.0 mmol/L Troponin I High Sensitivity 6 </=34 ng/L Urine Color Light-yellow Yellow Urine Clarity Clear Clear Urine pH 7.5 5.0-9.0 Urine Specific [place] 1.044 H 1.001-1.035 Urine Protein Negative Negative Urine Ketones Negative Negative Urine Blood Negative Negative /uL Urine Nitrite Negative Negative Urine Bilirubin Negative Negative Urine Urobilinogen Normal Negative mg/dL Urine Leukocyte Esterase Negative Negative /uL Urine RBC 3 0 - 4 /hpf Urine Microscopic WBC 1 0-5 /HPF Urine Squamous Epithelial Cells Few <5 /hpf Urine Bacteria Few H None Seen /hpf Urine Glucose Normal Normal mg/dL White Blood Count 19.0 H 4.4-10.8 10^3/uL Red Blood Count 4.76 4.0-5.20 10^6/uL Hemoglobin 14.4 12.2-16.2 g/dL Hematocrit 42.3 36.0-46.0 % Mean Corpuscular Volume 88.9 80.0-100.0 fL Mean Corpuscular Hemoglobin 30.2 28.0-32.0 pg Mean Corpuscular Hemoglobin Concent 34.0 32.0-36.0 g/dL Red Cell Distribution Width 13.8 11.8-14.3 % Platelet Count 462 H 140-450 10^3/uL Mean Platelet Volume 7.6 6.9-10.8 fL Neutrophils (%) (Auto) 91.4 H 37.0-80.0 % Lymphocytes (%) (Auto) 2.9 L 10.0-50.0 % Monocytes (%) (Auto) 5.6 0.0-12.0 % Eosinophils (%) (Auto) 0.0 0.0-7.0 % Basophils (%) (Auto) 0.1 0.0-2.0 % Neutrophils # (Auto) 17.3 H 1.6-8.6 10 ^3/uL Lymphocytes # (Auto) 0.5 0.4-5.4 10 ^3/uL Monocytes # (Auto) 1.1 0-1.3 10 ^3/uL Eosinophils # (Auto) 0 0-0.8 10 ^3/uL Basophils # (Auto) 0 0-0.2 10 ^3/uL Nucleated Red Blood Cells 0.1 % Sodium Level 142 136-145 mmol/L Potassium Level 3.9 3.5-5.1 mmol/L Chloride Level 102 98-107 mmol/L Carbon Dioxide Level 27 20-31 mmol/L Anion Gap 13 5-15 Blood Urea Nitrogen 13 9-23 mg/dL Creatinine 1.13 H 0.550-1.02 mg/dL Glomerular Filtration Rate Calc 51 >90 mL/min BUN/Creatinine Ratio 11.5 10.0-20.0 Serum Glucose 132 H 74-106 mg/dL Calcium Level 9.8 8.7-10.4 mg/dL CHEST RADIOGRAPH FINDINGS: Lines and Tubes: None Lungs: Congestion Pleura: No effusion. No pneumothorax. Cardiomediastinal contours: Unremarkable Bones: Unremarkable IMPRESSION: Increased interstitial prominence. This may represent pulmonary vascular congestion and/or viral pneumonia. Clinical correlation advised. Exam: CT CT AB PEL WITH IV CON ONLY FINDINGS: Lung Bases: No acute or significant lung base finding. Normal heart size. No pleural or pericardial effusion. Liver: The liver is normal in size. No focal lesions. Normal hepatic vascular enhancement. Gallbladder and Biliary Tree: The gallbladder is surgically absent. No biliary ductal dilatation. Spleen: Unremarkable. Pancreas: The pancreas is normal in appearance without focal lesions or abnormal enhancement. Adrenal Glands: Unremarkable Kidneys: Kidneys demonstrate normal symmetric enhancement without focal lesions, calculi or hydronephrosis. Bladder: Unremarkable Bowel: Small hiatal hernia. Fluid-filled small bowel loops, nonspecific. Liquid stool in the cecum. No acute appendicitis. Peritoneum: No pneumoperitoneum or ascites. Lymphadenopathy: No mesenteric, retroperitoneal or periportal lymphadenopathy. Abdominal Wall and Mesentery: Unremarkable. Vasculature: The visualized abdominal aorta is normal in size and caliber. Abdominal and pelvic vessels demonstrate normal enhancement. Pelvic Organs: Unremarkable Musculoskeletal: No aggressive focal bony lesions, acute fractures or dislocation. Soft tissues: Unremarkable. IMPRESSION: 1. Fluid-filled small bowel loops, nonspecific. Liquid stool in the cecum. Findings may represent enteritis. 2. No evidence of acute appendicitis. SEPSIS Sepsis Screen Date sepsis recognized/suspect: Feb 14, 2025 Time Sepsis recognized/suspect: 1216 Recent Procedure: No On Antibiotic Therapy: Yes Respiratory Rate >20: No Heart Rate >90: No Temp<36 C (96.8 F) or >38.3 C: No SBP <90 or MAP <65 mmHG: No New Acute Mental Status Change: No Is the patient on CPAP, BIPAP,: No Physician Orders Blood Culture (02/14/25 10:43) Admit (02/14/25 16:21) Code Status (02/14/25 16:21) Hydrocodone-Acet 5/325mg Tab ([place] 5/32 (02/14/25 16:30) Ondansetron Hcl (Zofran) (02/14/25 16:30) Docusate Sodium Capsule (Colace Capsule) (02/14/25 16:30) Complete Blood Count (02/15/25 04:00) Comprehensive Metabolic Panel (02/15/25 04:00) Condition: Serious (02/14/25 16:21) Acetaminophen Tablet (Tylenol Tablet) (02/14/25 16:30) Clear Liq Diet (02/14/25 Dinner) Vital Signs Date Time Temp Pulse Resp B/P (MAP) Pulse Ox O2 Delivery O2 Flow Rate FiO2 02/14/25 14:24 89 16 121/52 (75) 98 02/14/25 12:16 83 16 123/61 (81) 95 02/14/25 11:32 97.8 100 18 150/72 (98) 100 97.8 02/14/25 09:15 105 18 130/71 (90) 96 Laboratory Tests Test 02/14/25 07:08 02/14/25 10:57 White Blood Count 19.0 10^3/uL (4.4-10.8) H Lactic Acid Level 1.2 mmol/L (0.4-2.0) Medications Medications Dose Ordered Sig/Gil Route Start Time Stop Time Status Last Admin Dose Admin Cefazolin Sodium/ Dextrose 50 ml @ 50 mls/hr ONCE ONCE IV 02/14/25 10:45 02/14/25 11:44 DC 02/14/25 12:49 50 MLS/HR Metronidazole 100 ml @ 100 mls/hr ONCE ONCE IV 02/14/25 10:45 02/14/25 11:44 DC 02/14/25 10:59 100 MLS/HR Ondansetron HCl 4 mg ONCE ONCE IV 02/14/25 07:15 02/14/25 07:16 DC 02/14/25 07:36 4 MG Sodium Chloride 1,000 ml @ 1,000 mls/hr Q1H ONCE IV 02/14/25 07:15 02/14/25 08:14 DC 02/14/25 07:36 1,000 MLS/HR Sodium Chloride 1,000 ml @ 1,000 mls/hr Q1H ONCE IV 02/14/25 10:45 02/14/25 11:44 DC 02/14/25 10:59 1,000 MLS/HR Assessment/Plan Assessment/Plan Assessment: Enteritis, Leukocytosis, Dehydration, Hypertension, Hyperlipidemia, Parkinson's, GERD, Plan: Admit to Med-Surg, IV antibiotics, IV hydration, Clear liquid diet, advance as tolerated, Consider GI consult if symptoms persist, Son states he will bring in her home medications to be reconciled, Plan discussed with: Patient, Son My Orders Orders - MELISSA KHAN Procedure Category Date Status Time Admit ADMIT 02/14/25 Verified 16:21 Code Status CODE 02/14/25 Verified 16:21 Hydrocodone-Acet PHA 02/14/25 Verified 5/325mg Tab ([place] 16:30 Ondansetron Hcl PHA 02/14/25 Verified (Zofran) 16:30 Docusate Sodium PHA 02/14/25 Verified Capsule (Colace 16:30 Complete Blood Count LAB 02/15/25 Verified 04:00 Comprehensive LAB 02/15/25 Verified Metabolic Panel 04:00 Condition: Serious HERNANDEZ 02/14/25 Verified 16:21 Acetaminophen Tablet PHA 02/14/25 Verified (Tylenol Tablet) 16:30 Clear Liq Diet DIET 02/14/25 Verified Dinner Date of Service: Feb 14, 2025 Billing Provider: MELISSA KHAN Common Visit Codes: [id number] INP/OBS CARE (MOD) MELISSA KHAN Feb 14, 2025 17:11
[2025-02-14 17:19] VITALS: BP 142/73; PULSE 90; RESP 18; TEMP 98.7; O2SAT 96
[2025-02-14] MEDS ORDERED: LOVA40TA72 PO (18:38)
[2025-02-14] MEDS ORDERED: CAR25T PO (18:39)
[2025-02-14 20:00] VITALS: PULSE 92; RESP 18; O2SAT 94
[2025-02-14 21:00] VITALS: BP 143/69; PULSE 92; RESP 18; TEMP 98; O2SAT 94
[2025-02-15 01:16] VITALS: BP 119/68; PULSE 71; RESP 19; TEMP 98.4; O2SAT 96
[2025-02-15 05:00] VITALS: BP 115/62; PULSE 69; RESP 19; TEMP 98.2; O2SAT 95
[2025-02-15 05:27] LABS: Hematocrit 35.2 % (36.0-46.0); Hemoglobin 12.0 g/dL (12.2-16.2); Mean Corpuscular Hemoglobin 30.6 pg (28.0-32.0); Mean Corpuscular Volume 89.5 fL (80.0-100.0); Nucleated Red Blood Cells % 0.0 %
[2025-02-15 05:42] LABS: Alanine Aminotransferase 14 U/L (7-40); Albumin 3.8 g/dL (3.2-4.8); Alkaline Phosphatase 68 U/L (46-116); Anion Gap 10 (5-15); BUN/Creatinine Ratio 11.0 (10.0-20.0); Blood Urea Nitrogen 9 mg/dL (9-23); Carbon Dioxide 25 mmol/L (20-31); Glucose 92 mg/dL (74-106); Potassium 3.8 mmol/L (3.5-5.1); Sodium 144 mmol/L (136-145); Total Protein 6.8 g/dL (5.7-8.2)
[2025-02-15 05:43] LABS: Bilirubin, Total 1.5 mg/dL (0.2-1.0); Calcium 8.3 mg/dL (8.7-10.4); Chloride 109 mmol/L (98-107)
[2025-02-15 09:00] VITALS: BP 125/72; PULSE 71; RESP 17; TEMP 98.5; O2SAT 93
--- NOTE | 2025-02-15 14:42 | DVHDSRES ---
Discharge Summary Date of Admission Resident Creating Document: SHADY ALEJANDRO RESIDENT Feb 14, 2025 at 16:21 Date of Discharge: Feb 15, 2025 Admitting Diagnosis Acute gastroenteritis Wounds: No open wound was present. Labs/Diagnostic Data: Laboratory Results Test 02/15/25 04:48 02/14/25 10:57 02/14/25 10:04 02/14/25 07:35 White Blood Count 6.1 10^3/uL (4.4-10.8) Red Blood Count 3.93 10^6/uL (4.0-5.20) Hemoglobin 12.0 g/dL (12.2-16.2) Hematocrit 35.2 % (36.0-46.0) Mean Corpuscular Volume 89.5 fL (80.0-100.0) Mean Corpuscular Hemoglobin 30.6 pg (28.0-32.0) Mean Corpuscular Hemoglobin Concent 34.2 g/dL (32.0-36.0) Red Cell Distribution Width 13.8 % (11.8-14.3) Platelet Count 351 10^3/uL (140-450) Mean Platelet Volume 7.2 fL (6.9-10.8) Neutrophils (%) (Auto) 58.3 % (37.0-80.0) Lymphocytes (%) (Auto) 28.3 % (10.0-50.0) Monocytes (%) (Auto) 12.4 % (0.0-12.0) Eosinophils (%) (Auto) 0.5 % (0.0-7.0) Basophils (%) (Auto) 0.5 % (0.0-2.0) Neutrophils # (Auto) 3.5 10 ^3/uL (1.6-8.6) Lymphocytes # (Auto) 1.7 10 ^3/uL (0.4-5.4) Monocytes # (Auto) 0.8 10 ^3/uL (0-1.3) Eosinophils # (Auto) 0 10 ^3/uL (0-0.8) Basophils # (Auto) 0 10 ^3/uL (0-0.2) Nucleated Red Blood Cells 0.0 % Sodium Level 144 mmol/L (136-145) Potassium Level 3.8 mmol/L (3.5-5.1) Chloride Level 109 mmol/L (98-107) Carbon Dioxide Level 25 mmol/L (20-31) Anion Gap 10 (5-15) Blood Urea Nitrogen 9 mg/dL (9-23) Creatinine 0.82 mg/dL (0.550-1.02) Glomerular Filtration Rate Calc 75 mL/min (>90) BUN/Creatinine Ratio 11.0 (10.0-20.0) Serum Glucose 92 mg/dL (74-106) Hemoglobin A1c 5.9 % A1C (<5.7) Calcium Level 8.3 mg/dL (8.7-10.4) Total Bilirubin 1.5 mg/dL (0.2-1.0) Aspartate Amino Transferase (AST) 24 U/L (13-40) Alanine Aminotransferase (ALT) 14 U/L (7-40) Alkaline Phosphatase 68 U/L (46-116) Total Protein 6.8 g/dL (5.7-8.2) Albumin 3.8 g/dL (3.2-4.8) Vitamin D 25-Hydroxy 37.7 ng/mL (30.0-100) Thyroid Stimulating Hormone (TSH) 0.63 uIU/mL (0.55-4.78) Lactic Acid Level 1.2 mmol/L (0.4-2.0) Troponin I High Sensitivity 6 ng/L (</=34) Urine Color Light-yellow (Yellow) Urine Clarity Clear (Clear) Urine pH 7.5 (5.0-9.0) Urine Specific [place] 1.044 (1.001-1.035) Urine Protein Negative (Negative) Urine Ketones Negative (Negative) Urine Blood Negative /uL (Negative) Urine Nitrite Negative (Negative) Urine Bilirubin Negative (Negative) Urine Urobilinogen Normal mg/dL (Negative) Urine Leukocyte Esterase Negative /uL (Negative) Urine RBC 3 /hpf (0 - 4) Urine Microscopic WBC 1 /HPF (0-5) Urine Squamous Epithelial Cells Few /hpf (<5) Urine Bacteria Few /hpf (None Seen) Urine Glucose Normal mg/dL (Normal) Other Laboratory Tests 02/15/25 04:48 Brief Hx & Hospital Course: Aparna Koehler is a 74-year-old female with past medical history of hypertension, hyperlipidemia, Parkinson's, osteoporosis, osteoarthritis, GERD, prediabetic presented to the ED with a chief complaint of intractable abdominal pain, nausea and vomiting for 1 day prior to this visit. The patient stated that she was ate [employer] from outside and after that she started having intractable abdominal pain, nausea and few episodes of vomiting more than 5 times before coming to the hospital. She denies fever, chills, hematemesis, dysuria, hematuria, altered bowel habit, recent sick contact, or any recent traveling. Hospital course: Initial CT abdomen pelvis without contrast demonstrated fluid- filled small bowel loops, nonspecific. Liquid stool in the cecum and nonspecific leukocytosis. BMP did not revealed any electrolyte abnormality. The patient was treated with IV normal saline, IV ceftriaxone 1 g daily, IV metronidazole 500 mg t.i.d, IV ondansetron 4 mg Q 8 p.r.n. Today morning patient was not complaining of any nausea and no vomiting since last night and able to tolerate p.o. diet. Discharge plan was discussed with sons and patients and all questions were answered. The patient is being discharged to home with Protonix 40 mg p.o. daily for 1 month and advised to resume home medications and follow up with PCP in 1 week. Physical examination: General Appearance: Alert, Oriented X3, Cooperative, No acute distress HEENT: Atraumatic, PERRLA, EOMI, Mucous membrane moist/pink Respiratory: Clear to auscultation, Normal air movement Cardiovascular: Regular rate, Normal S1, Normal S2, No murmurs, no chest wall tenderness Abdominal: Normal bowel sounds, Soft, No tenderness, No hepatospenomegaly, No masses Extremities: No clubbing, No cyanosis, No edema, Normal pulses, No tenderness/swelling Skin: No rashes, No breakdown, No significant lesion Neuro: Normal speech, Strength at 5/5 X4 ext, Normal tone, Sensation intact, grossly intact cranial nerves. Psych/Mental Status: Mental status NL, Mood NL Consults/Reason for consult No consultation was done Operations or Procedures Exam: CT CT AB PEL WITH IV CON ONLY History: Abdominal pain. FINDINGS: Lung Bases: No acute or significant lung base finding. Normal heart size. No pleural or pericardial effusion. Liver: The liver is normal in size. No focal lesions. Normal hepatic vascular enhancement. Gallbladder and Biliary Tree: The gallbladder is surgically absent. No biliary ductal dilatation. Spleen: Unremarkable. Pancreas: The pancreas is normal in appearance without focal lesions or abnormal enhancement. Adrenal Glands: Unremarkable Kidneys: Kidneys demonstrate normal symmetric enhancement without focal lesions, calculi or hydronephrosis. Bladder: Unremarkable Bowel: Small hiatal hernia. Fluid-filled small bowel loops, nonspecific. Liquid stool in the cecum. No acute appendicitis. Peritoneum: No pneumoperitoneum or ascites. Lymphadenopathy: No mesenteric, retroperitoneal or periportal lymphadenopathy. Abdominal Wall and Mesentery: Unremarkable. Vasculature: The visualized abdominal aorta is normal in size and caliber. Abdominal and pelvic vessels demonstrate normal enhancement. Pelvic Organs: Unremarkable Musculoskeletal: No aggressive focal bony lesions, acute fractures or dislocation. Soft tissues: Unremarkable. IMPRESSION: 1. Fluid-filled small bowel loops, nonspecific. Liquid stool in the cecum. Findings may represent enteritis. 2. No evidence of acute appendicitis. CHEST RADIOGRAPH Indication: weakness Technique: Single frontal view of the chest was obtained COMPARISON: XY R SHOULDER 2+ VIEW XRAY on DOS: 11/25/22, XY L SHOULDER 2+ VIEW XRAY on DOS: 11/25/22 FINDINGS: Lines and Tubes: None Lungs: Congestion Pleura: No effusion. No pneumothorax. Cardiomediastinal contours: Unremarkable Bones: Unremarkable IMPRESSION: Increased interstital prominence. This may represent pulmonary vascular congestion and/or viral pneumonia. Clinical correlation advised. Condition at Discharge: Stable Final Diagnosis/Problems List Acute gastroenteritis GERD Leukocytosis Prediabetic, HbA1C 5.9 Hypertensive heart disease Hyperlipidemia Discharge Disposition: Home Discharge Instruct/Medications Diet: Cardiac 2g Na,low cholest Activity: No Restrictions, As Tolerated Follow Up/Referral: Follow up with PCP in 1 week. Medications: Protonix 40 mg po daily for 4 weeks. Scheduled Amlodipine Besylate (Amlodipine Besylate), PO DAILY, (Reported) Levodopa W/Carbidopa (Sinemet 25/100MG), 1 TAB PO QID, (Reported) Lovastatin (Lovastatin), 1 TAB PO DAILY, (Reported) Pantoprazole Sodium Sesquihydr (Protonix), 40 MG PO DAILY Paroxetine (Paxil Tablet), PO HS, (Reported) Discontinued Medications [Pantoprazole Sodium Sesquihydr], 40 MG PO BID Discharge Statement: "Patient was advised to return to the ER or call 911 if any headaches, dizziness, shortness of breath, chest pain, abdominal pain, bleeding, fevers, or worsening of medical condition. Patient was counseled about treatment plan, medications, possible side effects, patientverbalized understanding. All questions were answered to the best of my ability. This discharge took greater then 30 minutes in planning, reviewing documentation, counseling the patient, and discussing with other team members." ASSESSMENT ASSESSMENT Assessment Acute gastroenteritis Date of Service: Feb 15, 2025 Billing Provider: COURTNEY RIOS MD Common Visit Codes: [id number] DISCH DAY >30min SHADY ALEJANDRO RESIDENT Feb 15, 2025 14:42
[2025-02-15] MEDS ORDERED: PANT40TA2 PO (14:44)
[2025-02-15 15:12] VITALS: TEMP 36.9
[2025-02-15 15:37] LABS: COVID19 ANTIGEN SOFIA FIA NEGATIVE (NEGATIVE)
== END 2025-02-15 16:29 | disposition home or self-care (01) | DRG 373 ==
LOC: ER 04:25 → OVERFLOW 16:21 → WEST WING 17:22
PROVIDERS: ADMIT Nurse Practitioner Family; ATTEND Nurse Practitioner Family
DX: A04.9 Bacterial intestinal infection, unspecified (principal); G20.A1 Parkinson's disease without dyskinesia, without mention of fluctuations; E78.5 Hyperlipidemia, unspecified; F32.A Depression, unspecified; I11.9 Hypertensive heart disease without heart failure; E86.0 Dehydration; K21.9 Gastro-esophageal reflux disease without esophagitis; M81.0 Age-related osteoporosis without current pathological fracture; R73.03 Prediabetes
CPT/HCPCS: 36415; 71045; 74177; 80048; 80053; 81001; 82306; 82607; 83036; 83605; 83880; 84443; 84484; 85025; 87040; 87426; 87804; 96361; 96365; 96366; 96367; 96375; 99291; G0378; J2405; J3490